=== PATIENT | female | born 1935 | race Asian ===

== ENCOUNTER 2021-01-30 14:58 | Observation (INO) | payer MEDICARE, SELFPAY ==
[2021-01-30] VITALS (29 sets, daily range): BP systolic 103–148; BP diastolic 58–79; PULSE 68–84; RESP 20–35; TEMP 36.1–37.3; O2SAT 87–100; BMI 20.9
--- NOTE | ~2021-01-30 | XR_ITS ---
EXAMINATION: XR chest 1V portable DATE: 01/30/2021 15:22 INDICATION: Shortness of breath. TECHNIQUE: A single frontal view of the chest was obtained. COMPARISON: CT abdomen and pelvis 01/04/2011 FINDINGS: There is a small left pleural effusion. There are airspace opacities in the mid and lower l [place] zones. No pneumothorax. The heart size is normal. IMPRESSION: 1. Airspace opacities in the mid and lower lung zones, consistent with pulmonary edema versus pneumon ia. 2. Small left pleural effusion. Reviewed, dictated and finalized at location A. IMPRESSION: 1. Airspace opacities in the mid and lower lung zones, consistent with pulmonar y edema versus pneumonia. 2. Small left pleural effusion.
--- NOTE | ~2021-01-30 | US_ITS ---
EXAMINATION: US venous doppler [facility] DATE: 01/31/2021 10:33 INDICATION: Pulmonary embolism TECHNIQUE: Grayscale ultrasound images without and with compression and Doppler ultrasound images of the bilateral lower extremity veins were obtained. COMPARISON: None. FINDINGS: The visualized portions of right common femoral vein, profunda (deep) femoral vein, femoral vein, pop liteal vein, posterior tibial veins, peroneal veins, gastrocnemius vein and greater saphenous vein ou tflow are patent. The visualized portions of left common femoral vein, profunda femoral vein, femoral vein, popliteal v ein, posterior tibial veins, gastrocnemius vein and greater saphenous vein outflow are patent. Noncom pressible occlusive deep venous thrombosis in the mid are somewhat of the left peroneal veins. IMPRESSION: 1. Small amount of fluid in the deep venous thrombosis in the mid left peroneal vein. 2. No deep venous thrombosis in the right lower limb. Reviewed, dictated and finalized at location A.
--- NOTE | ~2021-01-30 | CT_ITS ---
EXAMINATION: CTA chest PE protocol DATE: 01/30/2021 19:18 INDICATION: Dyspnea on exertion. Chronic cough. Elevated d-dimer. TECHNIQUE: Computed tomography (CT) pulmonary angiogram of the chest was performed with 100 mL Omnipa que-350 intravenous contrast. Additional 3D reconstructions utilizing coronal maximum intensity proje ction (MIP) were performed. Automated exposure control and iterative reconstruction technique were em ployed. The dose-length product was 244.45 mGy-cm. COMPARISON: None FINDINGS: Excellent contrast opacification of the pulmonary arteries. There is moderate streak artifact from de nse contrast in the superior vena cava and right atrium. Mild to moderate scattered respiratory motio n artifact which decreases sensitivity in some of the smaller subsegmental pulmonary arteries. There is occlusive pulmonary embolism filling one of the branches of the anterior segmental pulmonary arter y of the right upper lobe. No other definitive pulmonary emboli identified. Small bilateral pleural e ffusions with predominantly dependent atelectasis in the bilateral lower lobes and lingula. Additiona l groundglass opacities and some bronchial mucous plugging in the bilateral lower lobes and could not exclude superimposed pneumonia. Mild cardiomegaly with right atrial enlargement. No leftward bowing of the ventricular septum to suggest right heart strain. There is enlargement of the central pulmonar y arteries consistent with pulmonary arterial hypertension. Thoracic aorta is normal in caliber with no dissection. No pathologically enlarged thoracic lymphadenopathy. Diverticulum at the splenic flexu re of the colon without adjacent inflammatory change to suggest diverticulitis. Visualized upper abdo men is otherwise unremarkable. Partially visualized mild lumbar dextrocurvature. Moderate thoracic an d severe lower cervical and upper lumbar spondylosis. IMPRESSION: 1. Pulmonary embolism in the breast one of the larger subsegmental pulmonary arteries in the anterior segment of the right upper lobe. 2. Small bilateral pleural effusions with dependent atelectasis in the bilateral lower lobes and ling brittany. There is some mucous plugging in the lower lobe bronchi and superimposed pneumonia is not exclud able. 3. Mild cardiomegaly with right atrial enlargement and enlargement of the central pulmonary arteries consistent with pulmonary arterial hypertension. Reviewed, dictated and finalized at location A. IMPRESSION: 1. Pulmonary embolism in the breast one of the larger subsegmental pulmonary ar teries in the anterior segment of the right upper lobe. 2. Small bilateral pleural effusions with dependent atelectasis in the bilatera l lower lobes and lingula. There is some mucous plugging in the lower lobe bron chi and superimposed pneumonia is not excludable. 3. Mild cardiomegaly with right atrial enlargement and enlargement of the centr al pulmonary arteries consistent with pulmonary arterial hypertension.
--- NOTE | ~2021-01-30 | US_ITS ---
EXAMINATION: US abdomen limited DATE: 01/31/2021 10:33 INDICATION: Elevated liver enzymes TECHNIQUE: Multiple grayscale and Doppler ultrasound images of the abdomen were obtained. COMPARISON: None FINDINGS: The pancreatic head and body are normal in appearance. The pancreatic tail is not visualized. Liver has normal echogenicity and contour, with a smooth surface. No liver lesion identified. No intrahepat ic biliary duct dilation suspected. Portal venous flow was seen in the hepatopetal, normal direction and has normal Doppler waveform. The gallbladder is normal in appearance. There is no cholelithiasis . The common bile duct measures 2 mm, which is normal. Sonographic Turner sign was reported as negati ve by the mechanical detailer. The visualized proximal aorta and inferior vena cava are normal. Visualized po rtion of the right kidney demonstrates normal contour and echogenicity with no hydronephrosis. IMPRESSION: 1. Normal abdominal ultrasound. Reviewed, dictated and finalized at location A.
--- NOTE | ~2021-01-30 | XR_ITS ---
EXAMINATION: XR chest 1V portable DATE: 02/01/2021 09:59 INDICATION: Dyspnea TECHNIQUE: frontal view of the chest was obtained. COMPARISON: Chest CT dated 01/30/2021 FINDINGS: Opacities at the bilateral lung bases with blunting at the costophrenic angles consistent with persis tent small bilateral pleural effusions and associated bibasilar atelectasis and/or pneumonia. No pneu mothorax. Megaly. Mild lumbar dextrocurvature with moderate spondylosis. Right rotator cuff arthropat hy. Prominent costochondral calcifications. IMPRESSION: 1. Persistent small bilateral pleural effusions with bibasilar atelectasis and/or pneumonia. 2. Cardiomegaly. Reviewed, dictated and finalized at location A. IMPRESSION: 1. Persistent small bilateral pleural effusions with bibasilar atelectasis and/ or pneumonia. 2. Cardiomegaly.
--- NOTE | 2021-01-30 15:01 | ECG_ITS ---
Measurements Intervals [place] Rate: 86 P: 23 MI: 146 QRS: 23 QRSD: 79 T: 31 QT: 342 QTc: 411 Interpretive Statements SINUS RHYTHM BASELINE WANDER- I, II, V4-V5 NORMAL ECG Electronically Signed On 01-30-2021 15:24:47 CDT by Mahendra Escobar D.O.
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
[2021-01-30] MEDS: SODIUM CHLORIDE 0.9% IV 500 ML 999 ML IV CONT (16:54)
[2021-01-30 17:09] LABS: Basophils Percent Auto 0.3 % (0.2-1.2); Eosinophils Absolute Auto 1.5 K/mm3 (0-0.3); Eosinophils Percent Auto 15.9 % (0-4.4); Hemoglobin 12.3 g/dL (12.0-15.0); Immature Granulocyte Absolute 0.07 K/mm3 (0.00-0.031); Immature Granulocyte Percent A 0.8 % (0-0.5); Lymphocytes Absolute Auto 1.28 K/mm3 (0.9-3.2); Lymphocytes Percent Auto 13.9 % (18.3-44.2); Mean Corpuscular HGB Conc 31.5 g/dl (32-36); Mean Corpuscular Hemoglobin 28.9 pg (26-34); Mean Corpuscular Volume 91.5 fl (80-100); Mean Platelet Volume 9.7 fl (7.4-10.4); Monocytes Absolute Auto 0.7 K/mm3 (0.1-0.6); Neutrophils Absolute Auto 5.7 K/mm3 (1.3-6.7); Neutrophils Percent Auto 62.1 % (45.5-73.1); Platelet Count Result 295 k/mm3 (150-375); Red Blood Count 4.26 M/mm3 (4.2-5.4); Red Cell Distribution Width 14.6 % (11.5-14.5); White Blood Count 9.2 K/mm3 (4.5-10.0)
[2021-01-30 17:12] LABS: Add Urine Microscopic? YES; Appearance Urine Clear (Clear); Bacteria Urine Trace /hpf; Bilirubin Urine Negative (Negative); Blood Urine 1+ (Negative); Color Urine Yellow (Yellow); Glucose Urine UA Negative (Negative); Ketones Urine Negative (Negative); Leukocyte Esterase Ur 3+ LEU/UL (Negative); Nitrate Urine Negative (Negative); Protein Urine 1+ mg/dL (Negative); RBC Urine 0-2 /hpf (0-2); Specific Grav Ur 1.023 (1.001-1.035); Squamous Epithelial Cell Urine Rare /hpf (Few); Urobilinogen Urine Negative mg/dL (<2.0); WBC Urine 0-3 /hpf
[2021-01-30 17:19] LABS: Alanine Aminotransferase 68 U/L (4-35); Albumin Level 3.5 g/dL (3.5-5.1); Alkaline Phosphatase 154 U/L (38-126); Anion Gap 6 mmol/L (8-16); Aspartate Amino Transferase 109 U/L (14-36); Bilirubin,Total 0.2 mg/dL (0.2-1.3); Blood Urea Nitrogen 21 mg/dL (7-17); Calcium 9.2 mg/dL (8.4-10.2); Carbon Dioxide 30 mmol/L (22-30); Chloride 98 mmol/L (98-107); Estimated CRCL calculation 32 ml/min; Estimated Glomerular Filt Rate > 60; Glucose 114 mg/dL (65-110); Potassium 4.3 mmol/L (3.4-5.0); Sodium 134 mmol/L (137-145)
[2021-01-30 17:20] LABS: Lactic Acid Reflex 1.5 mmol/L (0.7-2.1)
[2021-01-30 17:31] LABS: Troponin I < 0.012 ng/mL (0.000-0.034)
--- NOTE | 2021-01-30 18:06 | PC.NURSE ---
Called lab to add on additional orders.
[2021-01-30 18:32] LABS: NT Pro B Type Natriuretic Pept 2210 pg/mL (5-100)
[2021-01-30 18:35] LABS: Partial Thromboplastin Time 40.8 SECONDS (22.3-36.8)
[2021-01-30 18:37] LABS: D Dimer 3.22 ug/mL (<0.48)
[2021-01-30] MEDS: HEPARIN SODIUM 5,000 UNITS/ML VIAL 4000 UNITS IV PUSH (20:30)
[2021-01-30] MEDS: HEPARIN SOD/D5W 100 UNITS/ML 25,000 UNITS/250 ML BAG 9 UNITS IV CONT (20:33)
--- NOTE | 2021-01-30 20:37 | PC.NURSE ---
Heparin drip initiated according to MAR
--- NOTE | 2021-01-30 22:49 | ADMGEN ---
This patient, Yesika Bowman, was admitted to 2 Medical Room 254-01. Patient/family oriented to hospital policies and general routines including ID bracelet, bed and alarms, visiting hours, pain management, procedures, bathroom and other care routines, personal items, smoking policy, room service/diet, and visiting hours. Information on how to activate the Rapid Response Team has been discussed. Patient/Family are encouraged to report perceived risks to care and to ask questions if they do not understand what they are told or what they should do.
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
[2021-01-30 23:39] LABS: Basophils Percent Auto 0.1 % (0.2-1.2); Eosinophils Absolute Auto 1.9 K/mm3 (0-0.3); Hematocrit 34.4 % (37.0-47.0); Hemoglobin 10.9 g/dL (12.0-15.0); Immature Granulocyte Absolute 0.06 K/mm3 (0.00-0.031); Immature Granulocyte Percent A 0.6 % (0-0.5); Lymphocytes Absolute Auto 1.42 K/mm3 (0.9-3.2); Lymphocytes Percent Auto 15.1 % (18.3-44.2); Mean Corpuscular HGB Conc 31.7 g/dl (32-36); Mean Corpuscular Volume 91.5 fl (80-100); Mean Platelet Volume 9.8 fl (7.4-10.4); Monocytes Absolute Auto 0.7 K/mm3 (0.1-0.6); Neutrophils Absolute Auto 5.4 K/mm3 (1.3-6.7); Neutrophils Percent Auto 57.2 % (45.5-73.1); Platelet Count Result 284 k/mm3 (150-375); Red Blood Count 3.76 M/mm3 (4.2-5.4); Red Cell Distribution Width 14.6 % (11.5-14.5); White Blood Count 9.4 K/mm3 (4.5-10.0)
[2021-01-31] VITALS (7 sets, daily range): BP systolic 109–143; BP diastolic 56–74; PULSE 68–82; RESP 16–24; TEMP 36.6–37.2; O2SAT 93–100
--- NOTE | 2021-01-31 00:13 | PC.NURSE ---
patient transferred to room 301 by this production underwriter. via bed, tele, hep gtt and o2. report given to peter peck.
[2021-01-31 00:24] LABS: Troponin I < 0.012 ng/mL (0.000-0.034)
[2021-01-31 01:10] LABS: CRP 8.4 mg/dL (<1.0); Lactate Dehydrogenase 768 U/L (313-618)
[2021-01-31 01:17] LABS: Procalcitonin 0.6 ng/mL
[2021-01-31 02:43] LABS: Basophils Percent Auto 0.2 % (0.2-1.2); Eosinophils Absolute Auto 1.7 K/mm3 (0-0.3); Eosinophils Percent Auto 17.5 % (0-4.4); Hematocrit 33.6 % (37.0-47.0); Hemoglobin 10.7 g/dL (12.0-15.0); Immature Granulocyte Absolute 0.06 K/mm3 (0.00-0.031); Immature Granulocyte Percent A 0.6 % (0-0.5); Lymphocytes Absolute Auto 0.99 K/mm3 (0.9-3.2); Lymphocytes Percent Auto 10.5 % (18.3-44.2); Mean Corpuscular HGB Conc 31.8 g/dl (32-36); Mean Corpuscular Hemoglobin 29.2 pg (26-34); Mean Corpuscular Volume 91.6 fl (80-100); Mean Platelet Volume 9.8 fl (7.4-10.4); Monocytes Absolute Auto 0.7 K/mm3 (0.1-0.6); Neutrophils Percent Auto 64.2 % (45.5-73.1); Platelet Count Result 268 k/mm3 (150-375); Red Blood Count 3.67 M/mm3 (4.2-5.4); Red Cell Distribution Width 14.5 % (11.5-14.5); White Blood Count 9.4 K/mm3 (4.5-10.0)
[2021-01-31] MEDS: MIRTAZAPINE 15 MG TABLET PO ×2 (02:45→21:00)
[2021-01-31 03:21] LABS: Partial Thromboplastin Time > 200.0 SECONDS (22.3-36.8)
[2021-01-31 03:54] LABS: Troponin I < 0.012 ng/mL (0.000-0.034)
[2021-01-31] MEDS: LEVOTHYROXINE SODIUM 75 MCG TABLET PO (05:41)
[2021-01-31 10:05] LABS: Partial Thromboplastin Time 37.7 SECONDS (22.3-36.8)
[2021-01-31] MEDS: ROSUVASTATIN 5 MG TABLET PO (10:20)
[2021-01-31] MEDS: CHOLECALCIFEROL 1,000 UNITS TABLET 2000 UNITS PO (10:20)
[2021-01-31] MEDS: HEPARIN SODIUM 5,000 UNITS/ML VIAL 4000 UNITS IV PUSH (10:21)
[2021-01-31] MEDS: PRAMIPEXOLE 0.25 MG TABLET PO (10:21)
--- NOTE | 2021-01-31 12:40 | PM.IMPN ---
Progress Note: A&P Assessment and Plan (1) Pulmonary embolism: Qualifiers: Acute cor pulmonale presence: unspecified Chronicity: unspecified Pulmonary embolism type: unspecified Qualified Code(s): I26.99 - Other pulmonary embolism without acute cor pulmonale Code(s): I26.99 - Other pulmonary embolism without acute cor pulmonale Status: Acute Assessment and Plan: -new found right upper lobe pulmonary embolism, unclear etiology were embolus came from with no peripheral edema or pain. On provoked pulmonary embolism. Not on any medications which would trigger pulmonary embolism, no recent travels, no family history. -patient heparin drip, will switch to Eliquis pending insurance cost analysis -significant pulmonary embolism signs of enlargement pulmonary central artery and pulmonary hypertension, also has associated pleural effusion will give 20 mg IV Lasix and re-evaluate. Likely etiology for all her symptoms are pulmonary embolism. Also checking echocardiogram however I believe her pleural effusions likely related to embolism. -low concern for community-acquired pneumonia no fevers, normal white count, no sputum production, procalcitonin was borderline at 0.6. However with mucus plugging concern on CT scan will continue antibiotics re-evaluate tomorrow. Start patient on incentive spirometer, flutter valve, Mucinex to help with respiratory symptom -supplemental O2 to keep oxygen saturation greater than 90% -venous Doppler ordered to evaluate for DVT, unclear etiology of PE (2) Hypoxia: Code(s): R09.02 - Hypoxemia Status: Acute Assessment and Plan: On admission was hypoxic to O2 saturation 89 %, continue 2 L oxygen, supplemental oxygen to keep oxygen saturation greater than 90% (3) Acute dyspnea: Code(s): R06.00 - Dyspnea, unspecified Status: Acute Assessment and Plan: Tachypnea, secondary to pulmonary embolism (4) Anxiety and depression: Code(s): F41.9 - Anxiety disorder, unspecified; F32.9 - Major depressive disorder, single episode, unspecified Status: Acute Assessment and Plan: She can continue home Remeron in Mirapex and have Ativan 0.5 mg q.h.s. p.r.n. (5) Mild cognitive impairment: Code(s): G31.84 - Mild cognitive impairment, so stated Status: Acute Assessment and Plan: Chronic, stable (6) COVID-19 vaccine series completed: Code(s): Z92.29 - Personal history of other drug therapy Status: Acute Assessment and Plan: Already completed both COVID vaccine doses. Testing for COVID-19 because of unprovoked pulmonary embolism, low suspicion Additional Plan Diet: Regular DVT prophylaxis: On heparin drip plan to switch to Eliquis soon GI prophylaxis: Not indicated Code status: Full code Disposition: Pending clinical course, home in 2-3 days Time Spent With Patient Time with patient: 25 - 35 minutes Subjective Date/time seen: 01/31/21 12:40 Patient examined. Patient is in no acute distress breathing comfortably on 2 L oxygen. She still has crackles on lung exam and is unclear the etiology for pneumonia. Chest x-ray was consistent with mid and lower lung opacities right side consistent with fluid or pneumonia, left side as pleural effusion, with procalcitonin 0.6 and no white blood cell count no fevers does not appear to be pneumonia. She has right upper lobe pulmonary embolism, mucus plugging on CT scan with possible superimposed pneumonia. Schueler heparin drip for the pulmonary embolism. Likely has a some interstitial edema secondary to pulmonary embolism. With mucus plugging on CT scan there was some concern for pneumonia will continue antibiotics. Continue weaning oxygen as tolerated. I discussed with patient plan of therapy with heparin drip and possible transition to Eliquis pending insurance cost assessment. We will also continue antibiotics for now. She will have incentive spirometer to help wit
[2021-01-31] MEDS: guaiFENesin 600 MG/DEXTROMETHORPHAN 30 MG SR TAB 12 HR 1 TAB PO ×2 (13:59→21:00)
[2021-01-31] MEDS: FUROSEMIDE INJ 40 MG/4 ML VIAL 20 MG IV PUSH (13:59)
[2021-01-31 17:53] LABS: SARS-CoV-2 RNA PCR Negative
[2021-01-31 18:23] LABS: Partial Thromboplastin Time > 200.0 SECONDS (22.3-36.8)
[2021-01-31] MEDS: APIXABAN 5 MG TABLET 10 MG PO (21:05)
[2021-01-31] MEDS: LORazepam (*CRX) 0.5 MG TABLET PO (21:39)
[2021-02-01] VITALS (8 sets, daily range): BP systolic 116; BP diastolic 65; PULSE 61–81; RESP 18; TEMP 37; O2SAT 92–95
[2021-02-01] MEDS: LEVOTHYROXINE SODIUM 75 MCG TABLET PO (05:57)
[2021-02-01] MEDS: APIXABAN 5 MG TABLET 10 MG PO (09:42)
[2021-02-01] MEDS: CHOLECALCIFEROL 1,000 UNITS TABLET 2000 UNITS PO (09:42)
[2021-02-01] MEDS: PRAMIPEXOLE 0.25 MG TABLET PO (09:42)
[2021-02-01] MEDS: guaiFENesin 600 MG/DEXTROMETHORPHAN 30 MG SR TAB 12 HR 1 TAB PO (09:42)
[2021-02-01] MEDS: ROSUVASTATIN 5 MG TABLET PO (09:43)
--- NOTE | 2021-02-01 12:12 | PCRCNOTE ---
RN AND PATIENT AWARE PT DOES NOT REQUIRE OXYGEN AT HOME.
--- NOTE | 2021-02-01 14:11 | PM.DS ---
DS: Admitting Diagnosis Admitting Diagnosis Pulmonary embolism, pneumonia DS: Discharge Diagnosis Discharge Diagnosis (1) Pulmonary embolism: Qualifiers: Acute cor pulmonale presence: unspecified Chronicity: unspecified Pulmonary embolism type: unspecified Qualified Code(s): I26.99 - Other pulmonary embolism without acute cor pulmonale Code(s): I26.99 - Other pulmonary embolism without acute cor pulmonale Status: Acute Assessment and Plan: -new found right upper lobe pulmonary embolism, unclear etiology were embolus came from. Unprovoked pulmonary embolism. Not on any medications which would trigger pulmonary embolism, no recent travels, no family history. -venous Dopplers of lower extremities shows left lower extremity DVT in the peroneal vein -started on heparin drip and switched to Eliquis treatment dose for PE -significant pulmonary embolism signs of enlargement pulmonary central artery and pulmonary hypertension, she has been weaned off her oxygen. She is doing well with the Eliquis without any problems. She would like to go home and follow-up with her PCP. We cannot perform echocardiograms on the weekend, patient will follow-up tomorrow with echocardiogram outpatient. -patient has atelectatic signs on her imaging, continue incentive spirometer. She was given antibiotics however no sign of infection with no fever leukocytosis or sputum production. Antibiotics were started empirically however will be discontinued. -past home oxygen evaluation, does not need oxygen (2) Hypoxia: Code(s): R09.02 - Hypoxemia Status: Acute Assessment and Plan: Resolved, does not need home oxygen therapy (3) Anxiety and depression: Code(s): F41.9 - Anxiety disorder, unspecified; F32.9 - Major depressive disorder, single episode, unspecified Status: Acute Assessment and Plan: Continue Remeron and Mirapex (4) Mild cognitive impairment: Code(s): G31.84 - Mild cognitive impairment, so stated Status: Acute Assessment and Plan: Continue home medications (5) COVID-19 vaccine series completed: Code(s): Z92.29 - Personal history of other drug therapy Status: Acute Assessment and Plan: Completed COVID-19 vaccine, COVID-19 test was negative (6) Deep venous thrombosis (DVT) of left peroneal vein: Code(s): I82.452 - Acute embolism and thrombosis of left peroneal vein Status: Acute Assessment and Plan: Found on imaging, unprovoked, likely cause of her pulmonary embolism DS: Summary Hospital Course Reason for hospitalization: Dyspnea, hypoxemia Hospital Course: Patient is an 85-year-old female with past medical history of cataracts, arthritis, mild cognitive impairment, anxiety/depression who presents to ED with complaints of dyspnea with exertion for the past 2 weeks. Patient was found to have unprovoked pulmonary embolism of the larger subsegmental pulmonary arteries in the right upper lobe anterior segment and DVT in the left mid peroneal vein. She had associated pleural effusion which may be secondary to pulmonary embolism as well as atelectatic changes. Her breathing improved after small dose of Lasix IV. She is given incentive spirometer for the atelectasis. She was started on heparin drip and transitioned to Eliquis for the PE/DVT. Cost of Eliquis is reasonable for patient. Her COVID-19 test is negative, patient also has been vaccinated earlier this year. She was empirically given antibiotics for community-acquired pneumonia however imaging suggests more of atelectatic changes as opposed to true pneumonia. Patient had no leukocytosis, no fever, or sputum production and antibiotics were stopped. Patient will be on 6 months of anticoagulation for DVT/PE. Are unable provide echocardiogram over the weekend, patient will have echocardiogram outpatient tomorrow to further evaluate heart strain. She will follow-up with her PCP for further c
== END 2021-02-01 13:30 | disposition home or self-care (01) ==
LOC: ANHED 15:12 → ANH2MED 21:14 → ANH3MEDSUR 01-31 11:40 → ANH2MED 02-03 14:47 → ANH3MEDSUR 02-03 14:47
PROVIDERS: Emergency Medicine; Admitting Provider Internal Medicine; Emergency Provider Emergency Medicine; PCP Internal Medicine; Visit Provider Student in an Organized Health Care Education/Training Program
DX: I26.99 Other pulmonary embolism without acute cor pulmonale (principal); R09.02 Hypoxemia; I82.452 Acute embolism and thrombosis of left peroneal vein; M19.211 Secondary osteoarthritis, right shoulder; F41.8 Other specified anxiety disorders; G25.81 Restless legs syndrome; E03.9 Hypothyroidism, unspecified; G31.84 Mild cognitive impairment of uncertain or unknown etiology; Z20.822 Contact with and (suspected) exposure to COVID-19
CPT/HCPCS: 36415; 71045; 71275; 76705; 80053; 81001; 82728; 83605; 83615; 83880; 84145; 84484; 85025; 85380; 85610; 85730; 86140; 93005; 93970; 94618; 96361; 96365; 96366; 96367; 96375; 99285; A9270; C9803; G0378; J0456; J0696; J1644; J1940; J7040; Q9967; U0003; U0005

== ENCOUNTER 2021-02-09 10:24 | Outpatient (CLI) | payer MEDICARE, SELFPAY ==
--- NOTE | ~2021-02-09 | XR_ITS ---
EXAMINATION: XR hip BI 2V w AP pelvis DATE: 02/09/2021 11:06 INDICATION: Sacrococcygeal disorders not elsewhere specified TECHNIQUE: AP view the pelvis and two views of each hip were obtained. COMPARISON: None. FINDINGS: Bone alignment is normal. There is no fracture. There is mild osteoarthritis of the hips. S evere lumbar spondylosis is noted. IMPRESSION: 1. Mild osteoarthritis of the hips. Reviewed, dictated and finalized at location A.
== END 2021-02-09 10:25 | disposition home or self-care (01) ==
PROVIDERS: PCP Internal Medicine; Visit Provider Internal Medicine
DX: M53.3 Sacrococcygeal disorders, not elsewhere classified (principal); M16.0 Bilateral primary osteoarthritis of hip
CPT/HCPCS: 73521

== ENCOUNTER → 2021-02-13 18:04 | Outpatient (CLI) | payer MEDICARE, SELFPAY ==
--- NOTE | ~2021-02-13 | DEXA_ITS ---
Bone Density Report Name: Yesika Bowman Age: 85 Sex: Female Ethnicity: White Date of : 1935 Indication: osteopenia; height loss; hysterectomy;postmenopausal Referring Provider: SUMEET STALLINGS Study: Bone densitometry was performed. Exam Date: February 13, 2021 Accession number: [id number] Bone Density: Region BMD T-score Z-score Classification AP Spine (L1-L4) 1.070 0.2 3.1 Normal Femoral Neck (Left) 0.594 -2.3 0.2 Osteopenia Total Hip (Left) 0.838 -0.9 1.5 Normal Femoral Neck (Right) 0.597 -2.3 0.3 Osteopenia Total Hip (Right) 0.800 -1.2 1.2 Osteopenia Total Hip Mean 0.819 -1.1 1.4 Osteopenia World Health Organization criteria for BMD impression classify patients as: Normal (T-score at or above -1.0), Osteopenia (T-score between -1.0 and -2.5), or Osteoporosis (T-score at or below -2.5). 10-year Fracture Risk(1): Major Osteoporotic Fracture 15% Hip Fracture 5.2% Reported Risk Factors: [place] (), Neck BMD=0.597, BMI=21.8 (1) FRAX(R) Version 3.08. Fracture probability calculated for an untreated patient. Fracture probability may be lower if the patient has received treatment. Previous Exams: Region Exam Age BMD T-score BMD Change BMD Change Date g/cm2 vs Baseline vs Previous AP Spine(L1-L4) 02/13/2021 85 1.070 0.2 0.184* 0.184* 01/01/2011 75 0.887 -1.5 Total Hip(Left) 02/13/2021 85 0.838 -0.9 0.032* 0.032* 01/01/2011 75 0.807 -1.1 Total Hip(Right) 02/13/2021 85 0.800 -1.2 -0.003 -0.003 01/01/2011 75 0.803 -1.1 *Denotes significance at 95% confidence level, LSC for AP Spine = 0.022 g/cm2, LSC for Total Hip = 0.027 g/cm2 Clinical Information Provided by Patient: Has used the following medications: Vitamin D, Calcium, Levothyroxine Has the following medical conditions: Hysterectomy Patient maximum height was 62.0 Menopause Age: 45 No regular weight bearing exercise Drinks caffeinated beverages Onset of menses at age 12 Number of children 2 Impression: The patient has low bone mass, based on the Left Femoral Neck T-score. The patient has an estimated ten-year risk of hip fracture of 5.2% and an estimated ten-year risk of major fracture of 15%, based on the WHO FRAX algorithm. No significant bone loss was observed. Discussion: BONE DENSITY IS LOW AT ONE OR MORE SKELETAL SITES. THE PATIENT'S BMD AND CLINICAL RISK FACTORS CONTRIBUTE TO THIS
== END ==
PROVIDERS: PCP Internal Medicine; Visit Provider Internal Medicine
DX: Z78.0 Asymptomatic menopausal state (principal); M85.852 Other specified disorders of bone density and structure, left thigh; M85.851 Other specified disorders of bone density and structure, right thigh
CPT/HCPCS: 77080

== ENCOUNTER 2021-02-18 12:27 | Outpatient (CLI) | payer MEDICARE, SELFPAY ==
--- NOTE | 2021-02-18 13:14 | ECHO_ITS ---
Patient Info Name: Yesika Bowman Age: 85 years : 1935 Gender: Female Ht: 57 in Wt: 102 lbs BSA: 1.37 m2 HR: 67 bpm BP: 144 / 87 mmHg Exam Date: 02/18/2021 1:35 PM Exam Location: [facility] Patient Status: Outpatient Admit Date: 02/18/2021 Staff Ordering Physician: Ace Denney MD Nicker: Patel Turner, BENJIE, RT Attending Provider: Ace Denney MD Exam Type: CA echo doppler color flow Study Info Indications I26.99 - Other pulmonary embolism without acute cor pulmonale Complete two-dimensional, color flow and Doppler transthoracic echocardiogram is performed. Strain analysis performed. Summary 1. Complete two-dimensional, color flow and Doppler transthoracic echocardiogram is performed. 2. Left ventricular chamber dimension is normal. 3. Left ventricular systolic function is normal, estimated at 60-65%. 4. The left ventricular diastolic function is grade I diastolic dysfunction. 5. E/e' 13 is mildly elevated. 6. Global longitudinal strain is normal at -18.1%. 7. There is mild aortic valve sclerosis. 8. There is mild aortic valve regurgitation. 9. There is mild mitral valve regurgitation. 10. There is trace tricuspid valve regurgitation. 11. There is trace pulmonic regurgitation. Left Ventricle E/e' 13 is mildly elevated. Global longitudinal strain is normal at -18.1%. Left ventricular chamber dimension is normal. Left ventricular systolic function is normal, estimated at 60-65%. The left ventricular diastolic function is grade I diastolic dysfunction. Right Ventricle Right ventricular systolic function is normal and with normal TAPSE 1.8 cm. Right ventricular chamber dimension is normal. Left Atria Left atrial chamber dimension is normal. Right Atria Right atrial chamber dimension is normal. Aortic Valve The aortic valve is trileaflet. There is mild aortic valve sclerosis. There is no aortic valve stenosis. There is mild aortic valve regurgitation. Pulmonic Valve There is trace pulmonic regurgitation. Mitral Valve There is no mitral valve stenosis. There is mild mitral valve regurgitation. Tricuspid Valve RVSP is not calculated due to an inadequate TR jet. There is trace tricuspid valve regurgitation. Pericardium/Pleural There is no pericardial effusion. Inferior Vena Cava Normal inferior vena cava with >50% collapse upon inspiration consistent with normal right atrial pressure, 5 mmHg. Aorta The aortic root size at the sinus of Valsalva is normal. Left Ventricular Outflow Tract Name Value Normal LVOT 2D LVOT Diameter 1.8 cm LVOT Doppler LVOT Peak Gradient 3 mmHg LVOT Mean Gradient 2 mmHg LVOT VTI 20 cm LVOT VTI/AV VTI Ratio 0.6 LVOT Stroke Volume 52 ml LVOT CO 3.0 l/min LVOT CI 2.2 l/min/m2 Mitral Valve Name Value N
== END 2021-02-18 12:28 | disposition home or self-care (01) ==
PROVIDERS: PCP Internal Medicine; Visit Provider Internal Medicine
DX: I26.99 Other pulmonary embolism without acute cor pulmonale (principal); I34.0 Nonrheumatic mitral (valve) insufficiency
CPT/HCPCS: 93306

== ENCOUNTER 2021-02-18 14:07 | Outpatient (CLI) | payer MEDICARE, SELFPAY ==
--- NOTE | ~2021-02-18 | MM_ITS ---
EXAMINATION: MM screening cynthia BI w tiffany HISTORY: Screening TECHNIQUE: Craniocaudal and mediolateral oblique 3-D tomosynthesis images were obtained and synthetic 2-D images were generated. CAD analysis was submitted and interpreted. COMPARISON: No prior mammogram is available for comparison at this institution. BREAST PARENCHYMAL COMPOSITION: The breasts are heterogeneously dense, which may obscure small masses . FINDINGS: There is no evidence of suspicious mass, calcification, or architectural distortion to sugg est malignancy in either breast. There has been no suspicious interval change. IMPRESSION: 1. No mammographic evidence of malignancy. 2. Recommend routine screening mammography in one year. BI-RADS Category 1: Negative Reviewed, dictated and finalized at location A.
== END 2021-02-18 14:08 | disposition home or self-care (01) ==
LOC: ANHIMG 14:08
PROVIDERS: PCP Internal Medicine; Visit Provider Internal Medicine
DX: Z12.31 Encounter for screening mammogram for malignant neoplasm of breast (principal)
CPT/HCPCS: 77063; 77067; 93306

== ENCOUNTER 2021-03-27 09:34 | Outpatient (CLI) | payer MEDICARE, SELFPAY ==
--- NOTE | ~2021-03-27 | XR_ITS ---
XR knee LT 3V DATE: 03/27/2021 10:08 INDICATION: Left knee pain TECHNIQUE: [place], AP and lateral views COMPARISON: None FINDINGS: There is diffuse osteopenia. No fracture or dislocation or joint effusion. No periosteal reaction or bone destruction. Superior pole patellar enthesopathy at quadriceps tendon insertion. There is moderate periarticular spurring at the patella. There is mild loss of medial compartment laila nt space height. IMPRESSION: Osteoarthritis Osteopenia Reviewed, dictated and finalized at location A. IMPRESSION: Osteoarthritis Osteopenia
--- NOTE | ~2021-03-27 | XR_ITS ---
XR knee RT 3V DATE: 03/27/2021 10:09 INDICATION: Right knee pain TECHNIQUE: [place], AP and lateral views COMPARISON: None FINDINGS: Diffuse osteopenia. No fracture or dislocation or joint effusion. No periosteal reaction or bone destruction. Enthesopathy of the superior pole of the patella at the quadriceps tendon insertion. Enthesopathy of the anterior tibial at the patellar tendon insertion site. There is prominent joint space narrowing and moderate periarticular spurring of the patellofemoral rogerio int. There is moderate loss of joint space and periarticular spurring at the medial compartment. There is mild periarticular spurring of the lateral compartment. Mild chondrocalcinosis IMPRESSION: Tricompartment osteoarthritis, most prominent at the patellofemoral and medial compartmen ts Mild chondrocalcinosis. Osteopenia Reviewed, dictated and finalized at location A. IMPRESSION: Tricompartment osteoarthritis, most prominent at the patellofemoral and medial compartments Mild chondrocalcinosis. Osteopenia
--- NOTE | ~2021-03-27 | XR_ITS ---
XR hip BI 2V w AP pelvis DATE: 03/27/2021 10:08 INDICATION: Bilateral hip pain TECHNIQUE: AP pelvis. AP and lateral views of each hip. 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 There is severe degenerative disc disease at T2 included lumbar intersp aces above this level. There is rotatory dextroscoliosis of the lumbar spine. The pubic symphysis and sacroiliac joints are intact. Hip joint spaces are symmetric and relatively preserved. No pelvic fracture or bone destruction. No fracture, dislocation, avascular necrosis or bone destruct ion of either hip. 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
--- NOTE | ~2021-03-27 | XR_ITS ---
XR shoulder RT min 2V DATE: 03/27/2021 10:08 INDICATION: Right shoulder pain TECHNIQUE: 4 views COMPARISON: None FINDINGS: Diffuse osteopenia. There is severe chronic rotator cuff atrophy with the humeral head abutting the undersurface of the a cromion process. There is prominent osteoarthritic change at the right glenohumeral joint. No fracture or dislocation, periosteal reaction or bone destruction or abnormal soft tissue calcifica tion is evident. 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
--- NOTE | ~2021-03-27 | XR_ITS ---
XR shoulder LT min 2V DATE: 03/27/2021 10:08 INDICATION: Left shoulder pain TECHNIQUE: 4 views COMPARISON: None FINDINGS: There is diffuse osteopenia. There is chronic left rotator cuff atrophy. There is mild osteoarthritis of the left glenohumeral joint. No fracture, dislocation, periosteal reaction or bone destruction or abnormal soft tissue calcificati on of the left shoulder. IMPRESSION: Diffuse osteopenia Left rotator cuff atrophy Left glenohumeral osteoarthritis Reviewed, dictated and finalized at location A.
== END 2021-03-27 09:35 | disposition home or self-care (01) ==
LOC: ANHIMG 09:36
PROVIDERS: PCP Internal Medicine; Visit Provider Internal Medicine
DX: M25.519 Pain in unspecified shoulder (principal); M15.9 Polyosteoarthritis, unspecified; M85.89 Other specified disorders of bone density and structure, multiple sites; M62.512 Muscle wasting and atrophy, not elsewhere classified, left shoulder; M62.511 Muscle wasting and atrophy, not elsewhere classified, right shoulder; M51.36 Other intervertebral disc degeneration, lumbar region; Q76.49 Other congenital malformations of spine, not associated with scoliosis
CPT/HCPCS: 73030; 73521; 73562

== ENCOUNTER 2021-09-21 06:37 | Outpatient (CLI) | payer MEDICARE, SELFPAY ==
--- NOTE | ~2021-09-21 | MR_ITS ---
EXAMINATION: MR brain/brain stem wo con DATE: 09/21/2021 07:37 INDICATION: Mild cognitive impairment. Memory loss. TECHNIQUE: Magnetic resonance imaging (MRI) of the brain and brainstem was performed without intraven ous contrast. Sequences included sagittal and axial T1-weighted FSE, axial diffusion-weighted FS EPI, axial T2*-weighted GRE, axial T2-weighted FLAIR Propeller, and axial T2-weighted Propeller. Apparent diffusion coefficient (ADC) maps were created. COMPARISON: None. FINDINGS: There are scattered areas of nonspecific increased T2-weighted signal intensity in the cere bral and cerebellar white matter, deep broussard nuclei, and sara. There is no intracranial hemorrhage, ac tom infarction, or abnormal intracranial mass lesion. The ventricles are normal in size. There are li abi changes of ocular lens replacement surgeries. There is mild mucosal thickening in the paranasal sinuses. The mastoid air cells are normal. IMPRESSION: 1. Nonspecific cerebral and cerebellar white matter disease and disease of the deep broussard nuclei and p ons, which likely represents chronic small vessel ischemic disease. Reviewed, dictated and finalized at location A. IMPRESSION: 1. Nonspecific cerebral and cerebellar white matter disease and disease of the deep broussard nuclei and sara, which likely represents chronic small vessel ischemi c disease.
== END 2021-09-21 06:38 | disposition home or self-care (01) ==
PROVIDERS: PCP Internal Medicine
DX: G31.84 Mild cognitive impairment of uncertain or unknown etiology (principal); R93.0 Abnormal findings on diagnostic imaging of skull and head, not elsewhere classified
CPT/HCPCS: 70551